=== PATIENT | female | born 1955 | race Caucasian/White ===

== ENCOUNTER 2017-11-03 06:59 | Day surgery (SDC) | payer BC ==
[~2017-11-03] VITALS: Ht 167.6 cm; Wt 54.0 kg
[~2017-11-03 06:59] MED LIST: ATORVASTATIN; DILT180C86 PO; FEXO1TAB8 PO; POTA10CA44 PO; PRED2.5T PO; PRED5TAB PO; RIVA20TA PO; SERT50TA12 PO; SODIUM CHLORIDE 0.9% 1000ML 1,000 ML IV ONE; TOFA5TAB PO; TRAM1TAB PO
[2017-11-03 07:40] VITALS: BP 118/63
[2017-11-03] MEDS ORDERED: ATOR10TA69 PO (07:51)
[2017-11-03 07:52] VITALS: BP 118/63
[2017-11-03 09:26] VITALS: BP 114/65
== END 2017-11-03 09:56 ==
LOC: DAH 06:59
PROVIDERS: ATTEND Internal Medicine Gastroenterology
DX: Z08 Encounter for follow-up examination after completed treatment for malignant neoplasm (principal); K57.30 Diverticulosis of large intestine without perforation or abscess without bleeding; K55.20 Angiodysplasia of colon without hemorrhage; K21.9 Gastro-esophageal reflux disease without esophagitis; I48.91 Unspecified atrial fibrillation; G43.909 Migraine, unspecified, not intractable, without status migrainosus; G47.33 Obstructive sleep apnea (adult) (pediatric); M06.9 Rheumatoid arthritis, unspecified; Z90.49 Acquired absence of other specified parts of digestive tract; Z98.890 Other specified postprocedural states; Z98.0 Intestinal bypass and anastomosis status; Z85.038 Personal history of other malignant neoplasm of large intestine
CPT/HCPCS: 45378; A4606; J7030

== ENCOUNTER → 2019-01-07 | Outpatient (CLI) | payer BC ==
[~2019-01-07] MED LIST changes: +ATOR10TA69 PO; -ATORVASTATIN; -FEXO1TAB8 PO; -SODIUM CHLORIDE 0.9% 1000ML 1,000 ML IV ONE
== END | disposition home or self-care (01) ==
LOC: RAH 08:33
PROVIDERS: ATTEND Internal Medicine
DX: J44.9 Chronic obstructive pulmonary disease, unspecified (principal); M05.89 Other rheumatoid arthritis with rheumatoid factor of multiple sites; Z79.899 Other long term (current) drug therapy
CPT/HCPCS: 93306

== ENCOUNTER → 2022-09-19 | Outpatient (CLI) | payer OTHER, MEDICARE ==
[~2022-09-19] MED LIST changes: -POTA10CA44 PO; +POTA10CA45 PO; +SERT-439 PO; -SERT50TA12 PO; -TRAM1TAB PO; +TRAM1TAB2 PO
== END | disposition home or self-care (01) ==
LOC: RAH 13:02
PROVIDERS: ATTEND Internal Medicine Cardiovascular Disease
DX: I51.7 Cardiomegaly (principal); I50.20 Unspecified systolic (congestive) heart failure; I31.39 Other pericardial effusion (noninflammatory); I47.1 Supraventricular tachycardia
CPT/HCPCS: 93306

== ENCOUNTER → 2022-09-30 | Outpatient (CLI) | payer BC, OTHER | END | disposition home or self-care (01) | LOC: RAH 13:42 | PROVIDERS: ATTEND Internal Medicine Cardiovascular Disease | DX: Z13.6 Encounter for screening for cardiovascular disorders (principal); I51.5 Myocardial degeneration | CPT/HCPCS: 75571 ==